=== PATIENT | male | born 1985 | race Two or more races ===

== ENCOUNTER 2025-03-16 10:22 | Emergency (ER) | payer OTHER ==
[~2025-03-16] VITALS: Ht 172.7 cm; Wt 70.0 kg
[2025-03-16 10:27] VITALS: TEMP 98.1
[2025-03-16 10:41] LABS: APPEARANCE,URINE HAZY (CLEAR); BILIRUBIN,URINE NEGATIVE (NEGATIVE); COLOR,URINE LIGHT YELLOW (YELLOW); GLUCOSE, URINE (UA) NEGATIVE (NEGATIVE); KETONES,URINE NEGATIVE (NEGATIVE); LEUKOCYTE ESTERASE ,URINE LARGE (NEGATIVE); NITRATE,URINE NEGATIVE (NEGATIVE); OCCULT BLOOD,URINE NEGATIVE (NEGATIVE); PH,URINE 6.5 (5.0-8.0); PROTEIN,URINE NEGATIVE (NEGATIVE); SPECIFIC GRAVITIY, URINE 1.009 (1.003-1.030); UROBILINOGEN,URINE <=1.0 mg/dL (<=1.0)
[2025-03-16] MEDS ORDERED: IOHEXOL 350 MG/ML 100 ML VIAL ONE (10:50)
[2025-03-16] MEDS ORDERED: SODIUM CHLORIDE 0.9% 100 ML ONE (10:50)
[2025-03-16] MEDS: ACETAMINOPHEN 500 MG TABLET PO ONE (10:51)
[2025-03-16 10:52] LABS: BASOPHILS % (AUTO) 1.3 % (0.0-2.0); HEMATOCRIT 45.1 % (41-53); HEMOGLOBIN 15.2 g/dL (13.5-17.5); LYMPHOCYTES # (AUTO) 2.1 K/uL (1.0-4.8); LYMPHOCYTES % (AUTO) 24.3 % (22.0-44.0); MEAN CORPUSCULAR HEMOGLOBIN 31.2 pg (26.0-34.0); MEAN CORPUSCULAR HGB CONC 33.7 G/dL (31.0-37.0); MEAN CORPUSCULAR VOLUME 93 fL (80-100); MONOCYTES # (AUTO) 0.4 K/uL (0.1-1.0); MONOCYTES % (AUTO) 4.7 % (2.0-9.0); NEUTROPHILS # (AUTO) 4.5 K/uL (1.8-7.7); NEUTROPHILS % (AUTO) 52.6 % (40.0-70.0); PLATELET COUNT (AUTO) 215 K/uL (150-450); RED BLOOD CELL COUNT(AUTO) 4.86 MIL/uL (4.50-5.90); RED CELL DISTRIBUTION WIDTH 13.8 % (11.5-14.5); WHITE BLOOD COUNT (AUTO) 8.6 K/uL (4.5-11.0)
[2025-03-16 11:03] LABS: BACTERIA,URINE Many /HPF (None Seen); RBC,URINE None Seen /HPF (0-2); SQUAMOUS EPITHELIAL CELL,UR Few /LPF (None Seen)
[2025-03-16 11:15] LABS: EOSINOPHILS % (AUTO) 17.1 % (1.0-6.0)
[2025-03-16 11:18] LABS: ANION GAP 10 mmol/L (8-16); CALCIUM, TOTAL 8.9 mg/dL (8.8-10.5); CARBON DIOXIDE 27 mmol/L (22-29); CHLORIDE 104 mmol/L (98-107); CREATININE 0.73 mg/dL (0.60-1.30); GLOMERULAR FILTR. RATE CALC > 60 mL/min (>60); GLUCOSE,RANDOM 100 mg/dL (70-110); POTASSIUM 4.1 mmol/L (3.5-5.1); SODIUM SERUM 141 mmol/L (136-145); UREA NITROGEN, BLOOD 18 mg/dL (7-18)
[2025-03-16] MEDS: CefTRIAXone 1 GM/DEXTROSE 50 ML IV ONE (11:24)
[2025-03-16 11:25] LABS: ALBUMIN 4.1 g/dL (3.4-5.0); BILIRUBIN,DIRECT 0.1 mg/dL (0.00-0.20); BILIRUBIN,TOTAL 0.5 mg/dL (0.1-1.0); TOTAL PROTEIN, SERUM 7.3 g/dL (6.4-8.2)
[2025-03-16 11:34] LABS: RBC MORPHOLOGY COMMENT NORMAL RBC MORPH
[2025-03-16 12:54] VITALS: BP 121/68; PULSE 72; RESP 16; O2SAT 99
[2025-03-16] MEDS ORDERED: CEFP200T12 PO (13:18)
== END 2025-03-16 13:39 | disposition home or self-care (01) ==
LOC: EMS 10:22
DX: N12 Tubulo-interstitial nephritis, not specified as acute or chronic (principal); F17.210 Nicotine dependence, cigarettes, uncomplicated
CPT/HCPCS: 99285; 74177; 96365; 80048; 80076; 81001; 83690; 85025; 87077; 87086; 87186; 36415; 51798; Q9967; J0696; J7050

== ENCOUNTER 2025-09-01 11:18 | Emergency (ER) | payer OTHER ==
[~2025-09-01] VITALS: Ht 170.2 cm; Wt 73.0 kg
[~2025-09-01 11:18] MED LIST: CEFP200T12 PO
[2025-09-01 11:28] VITALS: BP 115/64; PULSE 80; RESP 18; TEMP 98.7; O2SAT 99
[2025-09-01 11:44] LABS: APPEARANCE,URINE HAZY (CLEAR); GLUCOSE, URINE (UA) NEGATIVE (NEGATIVE); LEUKOCYTE ESTERASE ,URINE LARGE (NEGATIVE); NITRATE,URINE POSITIVE (NEGATIVE); OCCULT BLOOD,URINE TRACE (NEGATIVE); SPECIFIC GRAVITIY, URINE 1.011 (1.003-1.030)
[2025-09-01 11:50] LABS: SQUAMOUS EPITHELIAL CELL,UR Rare /LPF (None Seen)
[2025-09-01] MEDS: SODIUM CHLORIDE 0.9% 500 ML IV ONE (12:29)
[2025-09-01] MEDS: KETOROLAC TROMETHAMINE 30 MG/ML VIAL IVP ONE (12:29)
[2025-09-01] MEDS: CefTRIAXone 1 GM/DEXTROSE 50 ML IV ONE (12:29)
[2025-09-01] MEDS ORDERED: LEVO-72 PO (12:45)
== END 2025-09-01 13:13 | disposition home or self-care (01) ==
LOC: EMS 11:18
DX: N39.0 Urinary tract infection, site not specified (principal); R30.9 Painful micturition, unspecified; F17.210 Nicotine dependence, cigarettes, uncomplicated; Z98.890 Other specified postprocedural states
CPT/HCPCS: 99284; 96365; 96375; 81001; 87077; 87086; 87186; J1885; J0696; J7040